=== PATIENT | male | born 1940 | race Caucasian/White ===

== ENCOUNTER 2018-06-18 10:56 | Emergency (ER) | payer OTHER, MEDICARE ==
[2018-06-18 11:37] VITALS: BP 150/81; PULSE 77; TEMP 97.6; BMI 29.8
--- NOTE | 2018-06-18 13:18 | PDOC ---
History of Present Illness - General Chief Complaint: Nasal Bleeding Stated Complaint: NOSE BLEEDING Time Seen by Provider: 06/18/18 13:12 History Source: Patient Exam Limitations: No Limitations - History of Present Illness Initial Comments: 06/18/18 12:13 77-year-old male presents to ED with complaints of right nasal passage bleeding since 6 AM. Patient is currently on aspirin and Plavix. Patient denies headache , dizziness, nose picking or recent nose blowing. Patient states awoke with the bit nasal bleeding. Patient upon my arrival requesting to leave since he has an appointment with his urologist Dr. jones Timing/Duration: 4-6 hours Severity: mild Associated Symptoms: reports: denies symptoms Past History - Travel Traveled outside of the country in the last 30 days: No - Past Medical History Allergies/Adverse Reactions: Allergies Allergy/AdvReac Type Severity Reaction Status Date / Time No Known Allergies Allergy Verified 06/18/18 11:30 Home Medications: Ambulatory Orders Alfuzosin HCl [Uroxatral] 10 mg PO HS 06/18/18 Amlodipine Besylate [Norvasc -] 5 mg PO DAILY 06/18/18 Aspirin 81 mg PO DAILY 06/18/18 Atorvastatin Calcium 40 mg PO HS 06/18/18 Celecoxib [Celebrex -] 200 mg PO HS 06/18/18 Clopidogrel Bisulfate [Plavix -] 75 mg PO HS 06/18/18 Duloxetine HCl [Cymbalta -] 30 mg PO BID 06/18/18 Finasteride [Proscar -] 5 mg PO HS 06/18/18 Furosemide [Lasix -] 20 mg PO DAILY 06/18/18 Metoprolol Succinate [Toprol Xl -] 50 mg PO DAILY 06/18/18 Ranolazine [Ranexa -] 500 mg PO BID 06/18/18 Cardiac Disorders: Yes HTN: Yes Hypercholesterolemia: Yes - Surgical History Cardiac Surgery: Yes (TRIPLE BYPASS; 3 STENTS) - Suicide/Smoking/Psychosocial Hx Smoking Status: No Smoking History: Unknown if ever smoked Number of Cigarettes Smoked Daily: 0 Patient Lives Alone: No Lives with/in: spouse/SO Review of Systems - Review of Systems Able to Perform ROS?: Yes Constitutional: No: Symptoms Reported HEENTM: Yes: Nose Bleeding Respiratory: No: Symptoms reported Cardiac (ROS): No: Lightheadedness Musculoskeletal: No: Symptoms Reported Integumentary: No: Symptoms Reported Neurological: No: Symptoms reported Endocrine: No: Symptoms Reported Hematologic/Lymphatic: No: Symptoms Reported *Physical Exam - Vital Signs Last Vital Signs Temp Pulse Resp BP Pulse Ox 97.6 F 77 18 150/81 96 06/18/18 11:36 06/18/18 11:36 06/18/18 11:36 06/18/18 11:36 06/18/18 11:36 - Physical Exam General Appearance: Yes: Nourished, Appropriately Dressed. No: Apparent Distress HEENT: positive: Other ( noactive bleeding from rt nare. dried blood noted on hairs and passage wall). negative: Pale Conjunctivae Neck: positive: Supple Respiratory/Chest: positive: Lungs Clear, Normal Breath Sounds. negative: Respiratory Distress, Accessory Muscle Use Cardiovascular: positive: Regular Rhythm, Regular Rate. negative: Murmur Integumentary: positive: Normal Color, Warm, Moist Neurologic: positive: Motor Strength 5/5 (ambulatory) Moderate Sedation - Procedure Monitoring Vital Signs: Procedure Monitoring Vital Signs Temperature 97.6 F 06/18/18 11:36 Pulse Rate 77 06/18/18 11:36 Respiratory Rate 18 06/18/18 11:36 Blood Pressure 150/81 06/18/18 11:36 O2 Sat by Pulse Oximetry (%) 96 06/18/18 11:36 Medical Decision Making - Medical Decision Making 06/18/18 12:15 CC: nasal bleeding at 6am. pt placed a paper towel in nare once bleeding did not stop over 15 minutes. No other complaints exam: no active bleeding patient requesting to leave upon my arrival to go to his urologist appointment at 12:30 plan: discharged to his appointment and explained to avoid nose blowing manipulation or sneezing for the next 48 hours *DC/Admit/Observation/Transfer Diagnosis at time of Disposition: Epistaxis - Discharge Dispostion Disposition: HOME Condition at time of disposition: Good - Referrals - Patient Instructions Printed Discharge Instructions: DI for Nosebleed Additional Instructions: No nose blowing, sneezing or manipulation for the next 48 hours. Return to the ED if symptoms return. Follow-up with Dr. Jones - Post Discharge Activity
== END 2018-06-18 11:49 | disposition home or self-care (01) ==
LOC: JER 10:56
DX: R04.0 Epistaxis (principal); I25.10 Atherosclerotic heart disease of native coronary artery without angina pectoris; I10 Essential (primary) hypertension; Z95.1 Presence of aortocoronary bypass graft; Z95.5 Presence of coronary angioplasty implant and graft; E78.00 Pure hypercholesterolemia, unspecified; Z79.01 Long term (current) use of anticoagulants; Z79.82 Long term (current) use of aspirin
CPT/HCPCS: 99281-25

== ENCOUNTER 2018-06-18 15:11 | Emergency (ER) | payer OTHER, MEDICARE ==
[2018-06-18 15:19] VITALS: BP 126/75; PULSE 82; TEMP 98.2; BMI 29.8
--- NOTE | 2018-06-18 15:19 | PDOC ---
Rapid Medical Evaluation Time Seen by Provider: 06/18/18 15:13 Medical Evaluation: Allergies Allergy/AdvReac Type Severity Reaction Status Date / Time No Known Allergies Allergy Verified 06/18/18 15:16 06/18/18 15:18 I performed a brief in-person evaluation of this patient. Chief complaint: Epistaxis and HTN, dc from ED today but sent back by urologist Pertinent physical exam findings: Scant nasal bleeding. Normotensive, not tachycardic. I have ordered the following: CBC, CMP, PT/INR Patient will proceed to the ED for further evaluation. Discharge Disposition - Diagnosis Epistaxis - Referrals - Patient Instructions - Post Discharge Activity
[2018-06-18 16:12] LABS: HEMATOCRIT 45.5 % (35.4-49); RDW 14.7 % (11.9-15.9)
[2018-06-18 16:14] LABS: BASO % 0.7 % (0-2.0); HEMOGLOBIN 15.7 GM/dL (11.7-16.9); LYMPH % 27.5 % (8-40); MCH 32.5 pg (25.7-33.7); MCHC 34.4 g/dl (32.0-35.9); MEAN CELL VOLUME 94.3 fl (80-96); MEAN PLT VOLUME 9.6 fl (7.5-11.1); MONO % 9.6 % (3.8-10.2); NEUT % 59.2 % (42.8-82.8); PLATELET COUNT 143 K/MM3 (134-434); RBC 4.82 M/mm3 (4.00-5.60); WHITE BLOOD COUNT 4.7 K/mm3 (4.0-10.0)
[2018-06-18 16:28] LABS: INR 1.06 (0.83-1.09); PROTHROMBIN TIME (PATIENT) 12.5 SEC (9.7-13.0)
[2018-06-18 16:37] LABS: ALBUMIN 4.2 g/dl (3.4-5.0); ALK PHOS 92 U/L (45-117); ANION GAP 6 MMOL/L (8-16); BILIRUBIN,TOTAL 0.6 mg/dL (0.2-1); BLOOD UREA NITROGEN 19 mg/dL (7-18); CHLORIDE 103 mmol/L (98-107); CO2 32 mmol/L (21-32); CREATININE 1.3 mg/dL (0.55-1.3); GLUCOSE,RANDOM 101 mg/dL (74-106); POTASSIUM 4.3 mmol/L (3.5-5.1); SGOT/AST 21 U/L (15-37); SGPT/ALT 29 U/L (13-61); SODIUM 141 mmol/L (136-145)
--- NOTE | 2018-06-18 17:39 | PDOC ---
History of Present Illness - General Stated Complaint: PCP SENT Time Seen by Provider: 06/18/18 15:13 History Source: Patient Exam Limitations: No Limitations - History of Present Illness Initial Comments: 06/18/18 17:03 77-year-old male presents to ED with recurrent nosebleed. Patient was seen here earlier but was discharged in seen by his urologist who noted the bleeding to continue and also had an elevated blood pressure of 160/100 and was given Lasix 40 mg injection and was sent back to the emergency room for evaluation. Patient states since yesterday has had nasal congestion causing frequent nose blowing. Patient states this morning awoke with nasal bleeding from the right naris. Patient has no other complaints this time including headache, visual changes, dizziness or weakness. Patient currently on Plavix and baby aspirin. Timing/Duration: intermittent Severity: mild Associated Symptoms: reports: denies symptoms Past History - Travel Traveled outside of the country in the last 30 days: No Close contact w/someone who was outside of country & ill: No - Past Medical History Allergies/Adverse Reactions: Allergies Allergy/AdvReac Type Severity Reaction Status Date / Time No Known Allergies Allergy Verified 06/18/18 15:16 Home Medications: Ambulatory Orders Alfuzosin HCl [Uroxatral] 10 mg PO HS 06/18/18 Amlodipine Besylate [Norvasc -] 5 mg PO DAILY 06/18/18 Aspirin 81 mg PO DAILY 06/18/18 Atorvastatin Calcium 40 mg PO HS 06/18/18 Celecoxib [Celebrex -] 200 mg PO HS 06/18/18 Clopidogrel Bisulfate [Plavix -] 75 mg PO HS 06/18/18 Duloxetine HCl [Cymbalta -] 30 mg PO BID 06/18/18 Finasteride [Proscar -] 5 mg PO HS 06/18/18 Furosemide [Lasix -] 20 mg PO DAILY 06/18/18 Metoprolol Succinate [Toprol Xl -] 50 mg PO DAILY 06/18/18 Ranolazine [Ranexa -] 500 mg PO BID 06/18/18 Cardiac Disorders: Yes HTN: Yes Hypercholesterolemia: Yes - Surgical History Cardiac Surgery: Yes (TRIPLE BYPASS; 3 STENTS) - Suicide/Smoking/Psychosocial Hx Smoking Status: No Smoking History: Unknown if ever smoked Number of Cigarettes Smoked Daily: 0 Patient Lives Alone: No Lives with/in: spouse/SO Review of Systems - Review of Systems Able to Perform ROS?: Yes Constitutional: No: Symptoms Reported HEENTM: Yes: Nose Bleeding Respiratory: No: Symptoms reported Cardiac (ROS): No: Symptoms Reported ABD/GI: No: Symptoms Reported : No: Symptoms Reported Musculoskeletal: No: Symptoms Reported Integumentary: No: Symptoms Reported Neurological: No: Symptoms reported Endocrine: No: Symptoms Reported Hematologic/Lymphatic: No: Symptoms Reported *Physical Exam - Vital Signs Last Vital Signs Temp Pulse Resp BP Pulse Ox 98.2 F 82 18 126/75 98 06/18/18 15:17 06/18/18 15:17 06/18/18 15:17 06/18/18 15:17 06/18/18 15:17 - Physical Exam General Appearance: Yes: Nourished, Appropriately Dressed. No: Apparent Distress HEENT: positive: EOMI, ADRIAN, Pharynx Normal (no blood posterior oropharynx or posterior tongue), Other (oted bright red blood draining from right naris. No visible lesion or wound. ) Neck: positive: Supple Respiratory/Chest: positive: Lungs Clear, Normal Breath Sounds. negative: Respiratory Distress, Accessory Muscle Use Cardiovascular: positive: Regular Rhythm, Regular Rate. negative: Murmur Gastrointestinal/Abdominal: positive: Soft. negative: Tenderness Integumentary: positive: Normal Color, Warm, Moist Neurologic: positive: Motor Strength 5/5 (ambulatory) Moderate Sedation - Procedure Monitoring Vital Signs: Procedure Monitoring Vital Signs Temperature 98.2 F 06/18/18 15:17 Pulse Rate 82 06/18/18 15:17 Respiratory Rate 18 06/18/18 15:17 Blood Pressure 126/75 06/18/18 15:17 O2 Sat by Pulse Oximetry (%) 98 06/18/18 15:17 ED Treatment Course - LABORATORY CBC & Chemistry Diagram: 06/18/18 15:51 06/18/18 15:51 - ADDITIONAL ORDERS Additional order review: Laboratory Results 06/18/18 06/18/18 15:51 15:51 PT with INR 12.50 INR 1.06 Sodium 141 Potassium 4.3 Chloride 103 Carbon Dioxide 32 Anion Gap 6 L BUN 19 H Creatinine 1.3 Creat Clearance w eGFR 53.53 Random Glucose 101 Calcium 9.0 Total Bilirubin 0.6 AST 21 ALT 29 Alkaline Phosphatase 92 Total Protein 8.0 Albumin 4.2 06/18/18 15:51 RBC 4.82 MCV 94.3 MCHC 34.4 RDW 14.7 MPV 9.6 Neutrophils % 59.2 Lymphocytes % 27.5 D Monocytes % 9.6 Eosinophils % 3.0 D Basophils % 0.7 Medical Decision Making - Medical Decision Making 06/18/18 17:08 Chief complaint: Patient here for recurrent epistaxis since 6 AM this morning. Patient rhinorrhea and nasal congestion since yesterday. Patient frequent nose line. Patient denies previous episode of epistaxis. Patient currently and no Coumadin or anticoagulation therapy except for baby aspirin and Plavix. Exam: Noted bright red blood draining from right near despite placing pressure for 10 minutes. Plan: Labs drawn in rapid medical evaluation. Patient had Rhino Rocket placed 4.5 without difficulty. Patient to return here in 48 hours if able to tolerate during monitoring for 15-30 minutes after placement . 06/18/18 17:40 Laboratory Tests 06/18/18 06/18/18 06/18/18 15:51 15:51 15:51 WBC 4.7 Hgb 15.7 Hct 45.5 Absolute Neuts (auto) 2.8 PT with INR 12.50 INR 1.06 Sodium 141 Potassium 4.3 Chloride 103 Carbon Dioxide 32 Anion Gap 6 L BUN 19 H Creatinine 1.3 Random Glucose 101 Calcium 9.0 Total Bilirubin 0.6 AST 21 Alkaline Phosphatase 92 Total Protein 8.0 Albumin 4.2 06/18/18 18:10 Patient reevaluated no active bleeding. Posterior oropharynx clear. Patient ambulatory without complaints. Patient will return in 48 hours for removal. *DC/Admit/Observation/Transfer Diagnosis at time of Disposition: Epistaxis - Discharge Dispostion Disposition: HOME Condition at time of disposition: Improved - Referrals Referrals: Sarah De La Torre MD [Primary Care Provider] - Kingston White MD [Staff Physician] - - Patient Instructions Printed Discharge Instructions: DI for Nosebleed Additional Instructions: Please return here 48 hours for removal. Do not manipulate nose blow or sneeze for the next 48 hours. Return sooner if symptoms reoccur - Post Discharge Activity
== END 2018-06-18 18:14 | disposition home or self-care (01) ==
LOC: JER 15:11
PROC: 2Y41X5Z Packing of Nasal Region using Packing Material (ICD-10-PCS; principal; 2018-06-18)
DX: R04.0 Epistaxis (principal); I25.10 Atherosclerotic heart disease of native coronary artery without angina pectoris; I10 Essential (primary) hypertension; Z95.1 Presence of aortocoronary bypass graft; Z95.5 Presence of coronary angioplasty implant and graft; Z79.01 Long term (current) use of anticoagulants; Z79.82 Long term (current) use of aspirin; E78.00 Pure hypercholesterolemia, unspecified
CPT/HCPCS: 36415; 80053; 85025; 85610; 99281-25

== ENCOUNTER 2019-06-17 09:40 | Emergency (ER) | payer OTHER, MEDICARE ==
[2019-06-17 10:09] VITALS: BP 110/64; PULSE 76; TEMP 98.3; BMI 28.7
[2019-06-17] MEDS ORDERED: TETRACAINE 0.5% OPHTH SOLN 2 ML BOTTLE ONE (10:24)
--- NOTE | 2019-06-17 11:22 | PDOC ---
History of Present Illness - General Chief Complaint: Eye Problem Stated Complaint: EYE PROBLEM Time Seen by Provider: 06/17/19 10:42 History Source: Patient Exam Limitations: No Limitations - History of Present Illness Initial Comments: 06/17/19 11:17 78-year-old male history of hypertension, AAA, CAD status post triple bypass on Plavix and aspirin presents complaining of discomfort to right eye since this morning. Patient awoke this morning approximately 5:30 AM, rubbed his right eye with the palm of hand and shortly after noticed he had a red eye. Denies eye pain, changes in vision, tearing of his eye, headache or any other complaint. Patient wears corrective lenses. ROS: GENERAL/CONSTITUTIONAL: No fever, chills, weakness, dizziness HEAD, EYES, EARS, NOSE AND THROAT: Redness to right eye, no changes in vision, No ear pain or discharge, No sore throat CARDIOVASCULAR: No chest pain RESPIRATORY: No shortness of breath or cough GASTROINTESTINAL: No pain, nausea, vomiting, diarrhea or constipation GENITOURINARY: No dysuria MUSCULOSKELETAL: No neck or back pain SKIN: No rash NEUROLOGIC: No headache, vertigo, loss of consciousness, or loss of sensation PE: GENERAL: well-appearing, NAD HEAD: NCAT EYES: VA right eye 30/30, left eye 30/30 with corrective lenses, subconjunctival hemorrhage to right eye, pupils equal, round and reactive to light, no eyelid swelling, no drainage from eye ENT: pharynx: no erythema, no exudate, uvula midline NECK: supple CHEST: nontender RESP: clear, no w/r/r CARDIO: rrr, no m/g/r ABD: +BS, soft, nontender, non distended BACK: no midline spinal ttp, no CVAT EXTREMITIES: Normal range of motion, no edema NEUROLOGICAL: Normal speech, normal gait SKIN: Warm, Dry Is this a multiple visit Asthma Patient?: No Past History - Past Medical History Allergies/Adverse Reactions: Allergies Allergy/AdvReac Type Severity Reaction Status Date / Time No Known Allergies Allergy Verified 06/17/19 10:09 Home Medications: Ambulatory Orders Alfuzosin HCl [Uroxatral] 10 mg PO HS 06/18/18 Amlodipine Besylate [Norvasc -] 5 mg PO DAILY 06/18/18 Aspirin 81 mg PO DAILY 06/18/18 Atorvastatin Calcium 40 mg PO HS 06/18/18 Celecoxib [Celebrex -] 200 mg PO HS 06/18/18 Clopidogrel Bisulfate [Plavix -] 75 mg PO HS 06/18/18 Duloxetine HCl [Cymbalta -] 30 mg PO BID 06/18/18 Finasteride [Proscar -] 5 mg PO HS 06/18/18 Furosemide [Lasix -] 20 mg PO DAILY 06/18/18 Metoprolol Succinate [Toprol Xl -] 50 mg PO DAILY 06/18/18 Ranolazine [Ranexa -] 500 mg PO BID 06/18/18 Cardiac Disorders: Yes COPD: No HTN: Yes Hypercholesterolemia: Yes - Surgical History Cardiac Surgery: Yes (TRIPLE BYPASS; 3 STENTS, triple AAA) - Psycho Social/Smoking Cessation Hx Smoking Status: No Smoking History: Never smoked Number of Cigarettes Smoked Daily: 0 Hx Alcohol Use: Yes (socially) Drug/Substance Use Hx: No *Physical Exam - Vital Signs Last Vital Signs Temp Pulse Resp BP Pulse Ox 98.3 F 76 16 110/64 97 06/17/19 10:05 06/17/19 10:05 06/17/19 10:05 06/17/19 10:05 06/17/19 10:05 Medical Decision Making - Medical Decision Making 06/17/19 11:20 78-year-old male with history of AAA, hypertension, CAD on Plavix and aspirin presents with right subconjunctival hemorrhage Discussed with patient that this is self-limiting Advised patient not to rub his eyes and not to take Plavix tonight resume taking Plavix tomorrow Patient agrees to follow-up with his cigar bander today or tomorrow Instructed to return to the ED if eye pain, headache, changes in vision or any concern 06/17/19 11:22 Discharge - Discharge Information Problems reviewed: Yes Clinical Impression/Diagnosis: Subconjunctival hemorrhage of right eye Condition: Stable Disposition: HOME - Admission No - Follow up/Referral Referrals: Sarah De La Torre MD [Primary Care Provider] - - Patient Discharge Instructions Additional Instructions: Follow-up with your cigar bander today or tomorrow Do not take Plavix today resume taking Plavix tomorrow Return to the ER if eye pain, changes in vision, headache or any concern - Post Discharge Activity
== END 2019-06-17 11:26 | disposition home or self-care (01) ==
LOC: JERFT 09:40
PROC: 4A07X0Z Measurement of Visual Acuity, External Approach (ICD-10-PCS; principal; 2019-06-17)
DX: H11.31 Conjunctival hemorrhage, right eye (principal); I25.10 Atherosclerotic heart disease of native coronary artery without angina pectoris; I10 Essential (primary) hypertension; Z95.1 Presence of aortocoronary bypass graft; Z95.5 Presence of coronary angioplasty implant and graft; Z79.02 Long term (current) use of antithrombotics/antiplatelets; E78.00 Pure hypercholesterolemia, unspecified; Z87.19 Personal history of other diseases of the digestive system
CPT/HCPCS: 99282-25